=== PATIENT | male | born 2000 | race Caucasian/White ===

== ENCOUNTER 2020-06-27 16:05 | Emergency (ER) | payer SELFPAY ==
--- NOTE | ~2020-06-27 | XR_ITS ---
EXAMINATION: XR finger 1st LT min 2V DATE: 06/27/2020 16:27 INDICATION: Pain at the proximal left thumb TECHNIQUE: Dorsal palmar, lateral and 2 oblique views of the left thumb were obtained COMPARISON: None FINDINGS: Alignment is normal. No fracture. Joint spaces are normal. Small heterotopic ossicle with mild soft t issue swelling at the radial aspect of the first metatarsophalangeal joint likely sequela of old trau ma to the radial collateral ligament. IMPRESSION: 1. Small heterotopic ossicle with mild soft tissue swelling at the radial aspect of the first metatar sophalangeal joint likely sequela of old trauma to the radial collateral ligament. Reviewed, dictated and finalized at location B. IMPRESSION: 1. Small heterotopic ossicle with mild soft tissue swelling at the radial aspec t of the first metatarsophalangeal joint likely sequela of old trauma to the ra dial collateral ligament.
[2020-06-27 16:10] VITALS: BP 126/70; PULSE 81; RESP 16; TEMP 37; O2SAT 100
--- NOTE | 2020-06-27 16:19 | ED.GENADULT ---
HPI - General Adult General Chief complaint: Extremity Injury, Upper Stated complaint: lt hand thumb pain Time Seen by Provider: 06/27/20 16:22 Source: patient and RN notes reviewed Mode of arrival: ambulatory Limitations: no limitations History of Present Illness HPI narrative: 20 year old male who presents to [facility] care with complaints of pain to his left thumb for the past 4 weeks. Patient denies any known injury to his left thumb. He states he usually does weights twice weekly, has not changed work out routine or amounts of pounds lifted. Patient denies excessive texting or playing of video games.He states that he has been icing his left thumb and taking tramadol for the pain with no resolution of his symptoms. Swelling noted to radial aspect of first metatarsophalangeal joint area with point tenderness of area. Patient denies any tingling or numbness to his thumb, has strong left radial pulse with brisk capillary refill to all digits of left hand. MD complaint: left thumb pain Onset (ago): week(s) (4) Location: upper extremity (left thumb) Radiation: non-radiation Severity: moderate Severity scale (1-10): 4 Quality: aching Pain Consistency: constant Relieving factors: rest (of joint) Exacerbating factors: movement Associated symptoms: denies other symptoms Treatments prior to arrival: cold therapy and other (tramadol prn) Related Data Allergies Allergy/AdvReac Type Severity Reaction Status Date / Time No Known Allergies Allergy Unverified 06/27/20 16:17 Review of Systems Review of Systems: Narrative: CONSTITUTIONAL: Denies fever, chills, or sweats. EYES: Denies visual changes, redness, or discharge. ENT: Denies rhinorrhea, congestion, sore throat, or otalgia. CARDIOVASCULAR: Denies chest pain, palpitations, or edema. RESPIRATORY: Denies cough or dyspnea. GASTROINTESTINAL: Denies abdominal pain, nausea, vomiting, or diarrhea. GENITOURINARY: Denies dysuria or hematuria. SKIN: Denies rash or itching. MUSCULOSKELETAL: Denies back pain,positive for pain to left 1st metatarsophalangeal joint and swelling of left thumb. NEUROLOGIC: Denies headache, numbness, or weakness. PSYCHIATRIC: Denies anxiety or depression. All systems reviewed & are unremarkable except as noted in HPI and below PMFSH Past Medical History Medical History (Updated 06/28/20 @ 08:42 by Pamela Esparza NP) No significant past medical history Surgical History Surgical History (Updated 06/27/20 @ 17:27 by Pamela Esparza NP) [place] teeth extracted Social History Social History (Updated 06/27/20 @ 17:28 by Pamela Esparza NP) Smoking status: Never smoker Living arrangements: with family Occupation/Education: student Gender identity (if verbalized by the patient): Male Comments at time of signature, agree with nursing past medical, surgical, social history. There is no relevant family history pertinent to the presenting complaint Exam Narrative: Exam Narrative: GENERAL: Well-appearing, well-nourished, and in no acute distress. HEAD: Normocephalic, atraumatic. EYES: PERRLA and EOMI. ENT: Nares clear, no rhinorrhea or epistaxis. Mucous membranes moist. NECK: Supple. CHEST: Clear to auscultation. No respiratory distress. HEART: Regular rate and rhythm. No murmur heard. Normal peripheral pulses. ABDOMEN: Soft, nontender, nondistended, normal active bowel sounds. EXTREMITIES: Normal range of motion. No edema. With exception to left thumb which is swollen and painful at the first metatarsophalangeal joint, strong left radial pulse, denies any tingling or numbness to his left thumb SKIN: Warm, dry, no rash. NEURO: No focal deficits. Alert and oriented x3. Course Vital Signs Vital signs: Vital Signs Temperature 37.0 C 06/27/20 16:10 Pulse Rate 81 06/27/20 16:10 Respiratory Rate 16 06/27/20 16:10 Blood Pressure 126/70 06/27/20 16:10 Pulse Oximetry 100 06/27/20 16:10 Temperature 37.0 C 06/27/20 16:10 Pulse
== END 2020-06-27 17:10 | disposition home or self-care (01) ==
PROVIDERS: Emergency Provider Registered Nurse; PCP Pediatrics
DX: M79.645 Pain in left finger(s) (principal)
CPT/HCPCS: 29130; 73140; 99213; G0463

== ENCOUNTER → 2020-07-15 08:41 | Outpatient (CLI) | payer SELFPAY ==
--- NOTE | ~2020-07-15 | MR_ITS ---
EXAMINATION: MR hand LT wo con DATE: 07/15/2020 09:32 INDICATION: Collateral ligament sprain with left thumb pain and limited range of motion TECHNIQUE: Magnetic resonance imaging (MRI) of the left hand centered on the left thumb was performed without intravenous contrast. Sequences included axial, sagittal and coronal T1-weighted FSE and T2- weighted FS FSE. COMPARISON: Radiographs dated 06/27/2020 FINDINGS: Bone alignment is normal. Normal marrow signal with no fracture or pathologic marrow replacing proces s. Joint spaces are normal and there are no cortical erosions. There is minimal thickening and increa sed signal of the proper radial collateral ligament of the first metacarpophalangeal joint correspond ing in location to the calcification seen on the prior radiographs. No surrounding soft tissue edema to suggest acute injury. The ulnar collateral ligament is normal. The remaining visualized collateral ligament complex at the second-fifth metacarpophalangeal joints as well as at the visualized interph alangeal joints are normal. The flexor and extensor tendons are normal. No joint effusions, tenosynov itis or other abnormal fluid collections. Visualized musculature of the hand is unremarkable. IMPRESSION: 1. Minimal thickening and increased signal at the radial collateral ligament of the left thumb withou t surrounding edema to suggest acute injury and with corresponding calcific density on prior radiogra phs. Given the current findings isolated to a single ligament, the most likely differential would inc lude heterotopic ossification related to chronic sprain or acute calcific periarthritis. The setting of more widespread disease. Differential for nonspecific dystrophic soft tissue calcifications would also include systemic etiologies including crystalline deposition disease such as gout and calcium py rophosphate deposition (CPPD) disease disorders of parathyroid hormone and calcium hemostasis and aut oimmune/connective tissue disorders. Reviewed, dictated and finalized at location A. IMPRESSION: 1. Minimal thickening and increased signal at the radial collateral ligament of the left thumb without surrounding edema to suggest acute injury and with delilah esponding calcific density on prior radiographs. Given the current findings iso lated to a single ligament, the most likely differential would include heteroto pic ossification related to chronic sprain or acute calcific periarthritis. The setting of more widespread disease. Differential for nonspecific dystrophic so ft tissue calcifications would also include systemic etiologies including cryst alline deposition disease such as gout and calcium pyrophosphate deposition (CP PD) disease disorders of parathyroid hormone and calcium hemostasis and autoimm une/connective tissue disorders.
== END ==
PROVIDERS: Visit Provider Plastic Surgery
DX: S63.602A Unspecified sprain of left thumb, initial encounter (principal); X58.XXXA Exposure to other specified factors, initial encounter
CPT/HCPCS: 73218